=== PATIENT | male | born 1950 | race Caucasian/White ===

== ENCOUNTER → 2017-08-11 | Outpatient (CLI) | payer MEDICARE, BC ==
[~2017-08-11] MED LIST: ASPIR-LOW81 MG PO; ASPIRIN 81M81 MG/TA2 PO; BACTRIM DS 8001 TAB PO; CARTIA XT240 MG PO; CEPHALEXIN500 M1 PO; HCTZ 25MG25 MG PO; KLOR-CON 1010 MEQ PO; LODINE400 MG PO; MVI PO; OSTEO-BI-FLEX 21 TAB PO; TOPROL XL25 MG PO; TYLENOL 500MG500 MG PO
== END ==
LOC: COL.RAD 12:18
DX: G31.1 Senile degeneration of brain, not elsewhere classified (principal); F01.50 Vascular dementia, unspecified severity, without behavioral disturbance, psychotic disturbance, mood disturbance, and anxiety
CPT/HCPCS: A9585

== ENCOUNTER 2020-01-06 12:26 | Inpatient (IN) | payer MEDICARE, BC ==
[~2020-01-06] VITALS: Ht 198.1 cm; Wt 120.1 kg
[2020-01-06] VITALS (75 sets, daily range): O2SAT 56–100
--- NOTE | 2020-01-06 06:31 | NUR ---
Sporadic twitching noted in the bilateral upper and lower extremities with initial admission assessment at 2100. Asked daughter, Didi, while at the bedside if this was normal for the patient. She said it was not, and that it had began within the last few days. Twitching has increased in frequency and intensity throughout shift. Both hospitalist and MORRIS have been notified.
[2020-01-06 14:12] LABS: MEAN CELL VOLUME 102 fl (80.0-100.0); MEAN CORPUSCULAR HGB CONC 35 g/dl (33.0-37.0); MEAN PLATELET VOLUME 9.9 fl (7.4-10.4); PLATELET COUNT 194 K/mm3 (130-400); RED BLOOD COUNT 2.52 M/mm3 (4.20-5.60); REDCELL DISTRIBUTION WIDTH-CV 14.1 % (11.5-14.5)
[2020-01-06 14:14] LABS: HEMOGLOBIN 8.9 g/dl (13.5-18.0); MEAN CORPUSCULAR HEMOGLOBIN 35 pg (27.0-31.0)
[2020-01-06 14:15] LABS: HEMATOCRIT 25.7 % (42.0-52.0)
[2020-01-06 14:24] LABS: ALBUMIN 3.7 gm/dL (3.5-5.0); BILIRUBIN,TOTAL 1.2 mg/dL (0.0-1.0); CALCIUM 9.5 mg/dL (8.4-10.2); TOTAL PROTEIN 9.2 gm/dL (6.4-8.2)
[2020-01-06 14:28] LABS: POTASSIUM 6.3 mmol/L (3.4-5.0)
[2020-01-06 14:30] LABS: CREATININE, serum 26.13 (0.66-1.25)
[2020-01-06 14:48] LABS: TROPONIN-I 0.375 ng/mL (0.000-0.035)
[2020-01-06 15:16] LABS: BAND 2 % (0-10); EOSINOPHIL 2 % (0-4); LYMPHOCYTE 11 % (20.0-51.0); METAMYELOCYTE 1 % (0-0); MYELOCYTE 1 % (0-0); NEUTROPHILS 80 % (42.0-75.2); PLATELET ESTIMATE NORMAL (NORMAL)
[2020-01-06 16:33] LABS: C-REACTIVE PROTEIN 5.1 mg/dL (0.0-0.9); MAGNESIUM 1.7 mg/dL (1.6-2.3)
[2020-01-06 16:37] LABS: PHOSPHOROUS 11.9 mg/dL (2.5-4.5)
[2020-01-06 17:09] LABS: COLLECTION METHOD CLEAN CATCH
[2020-01-06 17:24] LABS: MUCOUS Present /lpf; PH 6 (5-8); SQUAMOUS EPITHELIAL None Seen /hpf; URINE APPEARANCE Cloudy; URINE BACTERIA Rare /hpf; URINE BILIRUBIN Negative (NEGATIVE); URINE BLOOD 2+ (NEGATIVE); URINE COLOR Yellow; URINE GLUCOSE Negative (NEGATIVE); URINE KETONE Negative (NEGATIVE); URINE LEUKOCYTE ESTERASE Negative (NEGATIVE); URINE NITRATE Negative (NEGATIVE); URINE PROTEIN(semi-quant) 2+ (NEGATIVE); URINE RBC >50 /hpf; URINE UROBILINOGEN Negative (NEGATIVE)
--- NOTE | 2020-01-06 19:37 | NUR ---
Received report from [facility] ED nurse.
--- NOTE | 2020-01-06 20:30 | NUR ---
Patient arrives to ICU room 1 via ED stretcher accompanied by ED nurse and daughter, Didi. Patient able to scoot into ICU bed with minimal assistance. Patient is alert to self, birthday, and location. He is confused regarding the time, current president, and situation. Initial BP is 196/99, other vitals within normal limits. Patient denies any pain or discomfort. He arrives with NS hanging to gravity tubing to a peripheral IV in the LAC; he has a coates catheter with 10mL of orange/pinkish urine in urometer. Patient is on room air. notified of patient's arrival. Will continue to monitor.
--- NOTE | 2020-01-06 21:46 | NUR ---
Dr. Gallagher notified of consult and patient condition. Received orders to add the following to prior ED labs: SPEP, serum free light chain, renal panel, uric acid, and UPCR. Received orders for the following medications: sodium bicarb drip in D5W at 50mL/hr, sodium bicarb 650mg PO QID, to start now; PRN hydralazine 25mg PO q 4 hours for a systolic greater than 155; lasix 40mg IV now. To obtain blood cultures if a temperature greater than 100F obtained. Oncology to be consulted in the AM. All orders repeated and clarified with Dr. Gallagher. He states he will see the patient tomorrow.
[2020-01-06 22:43] LABS: ALBUMIN 3.7 gm/dL (3.5-5.0); CALCIUM 9.5 mg/dL (8.4-10.2); URIC ACID 15.3 mg/dL (3.5-8.5)
[2020-01-06 22:49] LABS: CREATININE, serum 26.32 (0.66-1.25)
[2020-01-06 22:53] LABS: POTASSIUM 6.4 mmol/L (3.4-5.0)
[2020-01-06 23:10] LABS: URINE PROTEIN:CREAT RATIO 6.22 (0.00-0.14)
[2020-01-07] VITALS (471 sets, daily range): BP systolic 143–196; BP diastolic 84–103; PULSE 72–85; TEMP 97.2–98.6; O2SAT 57–100
--- NOTE | 2020-01-07 04:17 | NUR ---
Notified of patient's continued elevated SBPs ranging 160-190s, with DBPs greater than 100 throughout majority of shift. This has been despite administration of hydralazine, metoprolol, and morphine. She suggested I consult with MORRIS. Dr. Jacome notified of pressures as well as patient's worsening body twitching. Received orders to initiate cardene drip at 2.5mg/hr. Relayed orders to , who agreed with this plan of care. PRN ativan administered to help ease tremors. Patient is currently resting easier in bed. Twitching has eased significantly. Will continue to monitor.
[2020-01-07 05:47] LABS: MEAN CELL VOLUME 103 fl (80.0-100.0); MEAN CORPUSCULAR HGB CONC 35 g/dl (33.0-37.0); MEAN PLATELET VOLUME 10.1 fl (7.4-10.4); PLATELET COUNT 184 K/mm3 (130-400); RED BLOOD COUNT 2.22 M/mm3 (4.20-5.60); REDCELL DISTRIBUTION WIDTH-CV 14.4 % (11.5-14.5)
[2020-01-07 05:50] LABS: HEMATOCRIT 22.9 % (42.0-52.0); HEMOGLOBIN 7.9 g/dl (13.5-18.0); MEAN CORPUSCULAR HEMOGLOBIN 36 pg (27.0-31.0)
[2020-01-07 06:06] LABS: CREATININE, serum 26.85 (0.66-1.25)
[2020-01-07 06:25] LABS: ALBUMIN 3.4 gm/dL (3.5-5.0); BILIRUBIN,TOTAL 1.2 mg/dL (0.0-1.0); CALCIUM 9.2 mg/dL (8.4-10.2); TOTAL PROTEIN 8.6 gm/dL (6.4-8.2)
[2020-01-07 06:28] LABS: POTASSIUM 5.8 mmol/L (3.4-5.0)
[2020-01-07 06:29] LABS: BAND 4 % (0-10); LYMPHOCYTE 17 % (20.0-51.0); NEUTROPHILS 73 % (42.0-75.2); PLATELET ESTIMATE NORMAL (NORMAL)
--- NOTE | 2020-01-07 07:30 | NUR ---
PATIENT CARE TAKEN OVER AFTER REPORT RECEIVED FROM MATHEUS MORENO. PATIENT IS SLEEPING HEAVILY WITH SNORING RESPIRATIONS. HE WAKES BRIEFLY WHEN STIMULATED, BUT IS UNABLE TO STAY AWAKE. VS WNL. CARDENE GTT AND SODIUM BICARB GTT INFUSING. WILL CONTINUE TO MONITOR.
--- NOTE | 2020-01-07 10:00 | NUR ---
SON, MIRIAM, HAS BEEN HERE FOR A LITTLE WHILE. HE IS UPDATED ON THE PATIENT'S SITUATION. PHYSICIANS ON THE UNIT ROUNDING AT THIS TIME. MUCH DISCUSSION REGARDING CODE STATUS, AGGRESSIVENESS OF TREATMENT AND OVERALL PLAN FOR THIS PATIENT.
[2020-01-07 10:09] LABS: ARTERIAL BLD GAS O2 SATURATION 92.4 % (92-100); ARTERIAL BLD GAS TCO2 CT 15.2; ARTERIAL BLOOD GAS BASE EXCESS -11.8 (-2-2); ARTERIAL BLOOD GAS HCO3 14.2 meq/L (22-26); ARTERIAL BLOOD GAS PCO2 32.6 mmHg (35-45); ARTERIAL BLOOD GAS PO2 79.7 mmHg (80-100); ARTERIAL BLOOD GAS pH 7.26 (7.35-7.45)
--- NOTE | 2020-01-07 11:00 | NUR ---
PATIENT'S FAMILY, INCLUDING DPOAs, DECIDE TO MAKE THE PATIENT A DNR. THIS WILL BE VERIFIED WITH DR. GOMEZ.
[2020-01-07 11:49] LABS: INR 1.5 (0.8-3.0); PROTHROMBIN TIME 16.7 SECONDS (9.7-12.8)
[2020-01-07 11:51] LABS: PARTIAL THROMBOPLASTIN TIME 25.7 SECONDS (26.0-37.0)
--- NOTE | 2020-01-07 12:30 | NUR ---
DR. TONG HERE TO PLACE FEMORAL DIALYSIS CATHETER.
--- NOTE | 2020-01-07 13:15 | NUR ---
C 40A Crew Chief prayed while family was in room. C 40A Crew Chief visited with family member.
--- NOTE | 2020-01-07 16:30 | NUR ---
MATHEUS Bennett, here to adminster Hemodialysis for this patient. Son, Janes, in room and updated on the plan for HD at this time.
--- NOTE | 2020-01-07 17:10 | NUR ---
Cinthia Lainez APRN here to check on patient during dialysis. She notifies me that patient will be made "floor status" following dialysis so that he may transfer up to third floor so he can received HD tomorrow upstairs. I ask her if Dr. Gallagher has spoken with the hospitalist about this given how ill the patient is. She says that they have discussed it and are in agreement that the patient can transfer up. I state to her that the patient is on a Cardene gtt to help keep SBP controlled below 150. She states that will need to be weaned off. Dr. Arteaga contacted regarding this new information regarding transfer to medical floor. He confirms that orders should be in place for the transfer. I notify him of cardene gtt and that i will work on weaning it off. He states that PRN antihypertensives will be ordered to help with HTN.
--- NOTE | 2020-01-07 18:15 | NUR ---
Dr. Arteaga on unit at this time. I discuss with him the transfer orders received for this patient and my concerns for the need for closer monitoring given how ill the patient is. He states that Dr. Gallagher discussed the transfer with him earlier and he is agreeable to allowing the patient to transfer to the third floor. Patient continues to received HD at this time. Will pass on to overnight stocker RN that patient should transfer up to third floor after HD is completed.
--- NOTE | 2020-01-07 19:00 | NUR ---
Bedside report given to MATHEUS Siddiqui. Plan for transfer to floor communicated at this time.
--- NOTE | 2020-01-07 23:39 | NUR ---
Notified Lissett of patient's increasing BPs. Patient exhibits limited orientation; unable to tolerate PO at this time. PO hydralazine held. Received orders for hydralazine 10mg IV q 4 hours. Discussed PRN ativan dosages, which were decreased to 0.5mg q 6 hours PRN. Will continue to monitor.
[2020-01-08] VITALS (445 sets, daily range): BP systolic 142–189; BP diastolic 77–99; PULSE 66–95; TEMP 96.9–98.9; O2SAT 70–100
--- NOTE | 2020-01-08 01:50 | NUR ---
MAYRA Galeana, notified of patient's persistent SBPs 170-180s despite IV hydralazine administration. Patient also experienced brief episode of tachycardia up to 120s, with increased ectopy in heart rhythm at approximately 0100. Patient is alert, although not oriented. He denies any pain or discomfort when asked but appears restless. PRN morphine administered for comfort measures. Due to uncontrolled BPs and heart rhythm irregularities, this nurse advocated that the patient not be transferred to medical prior to shift change. Will continue to monitor.
[2020-01-08 05:36] LABS: BASO % 0.4 % (0.0-2.0); EOS # 0.1 (0.0-0.7); EOS % 0.6 % (0-4.0); GRAN # 7.7 (1.4-6.5); GRAN % 73.3 % (42.2-75.2); LYMPH # 1.4 (1.2-3.4); LYMPH % 13.4 % (20.0-51.0); MEAN CELL VOLUME 104 fl (80.0-100.0); MEAN CORPUSCULAR HGB CONC 35 g/dl (33.0-37.0); MEAN PLATELET VOLUME 9.9 fl (7.4-10.4); MONO # 1.2 (0.1-0.6); MONO % 11.1 % (1.7-9.3); PLATELET COUNT 186 K/mm3 (130-400); RED BLOOD COUNT 2.35 M/mm3 (4.20-5.60); REDCELL DISTRIBUTION WIDTH-CV 14.6 % (11.5-14.5)
[2020-01-08 05:37] LABS: HEMATOCRIT 24.5 % (42.0-52.0); HEMOGLOBIN 8.5 g/dl (13.5-18.0); MEAN CORPUSCULAR HEMOGLOBIN 36 pg (27.0-31.0)
[2020-01-08 05:48] LABS: ALBUMIN 3.6 gm/dL (3.5-5.0); CALCIUM 9.2 mg/dL (8.4-10.2); POTASSIUM 5.2 mmol/L (3.4-5.0)
[2020-01-08 05:54] LABS: CREATININE, serum 23.2 (0.66-1.25)
[2020-01-08 05:56] LABS: PHOSPHOROUS 12.8 mg/dL (2.5-4.5)
[2020-01-08 13:00] LABS: HEPATITIS B SURFACE ANTIBODY <2.0 (()); HEPATITIS B SURFACE ANTIGEN Negative (Negative); HEPATITIS C VIRUS ANTIBODY Negative (Negative)
--- NOTE | 2020-01-08 21:00 | NUR ---
Pt transfered from ICU to the surgical unit. Pt was drowsy, closed eyes and on stress when arriving on the floor. BP was on higher side, PRN hydralazine provided as per MAY. Mouth was very dry, mouth care provided. Pt is settled on his bed, call light on reach, bed alarm is on. No further needs at this time.
[2020-01-09 00:23] VITALS: BP 171/81; PULSE 81; TEMP 98.1
--- NOTE | 2020-01-09 02:09 | NUR ---
REMOVED BIPAP DUE TO BLOOD IN MASK AND IN/AROUND MOUTH. CONTACTED CHUCKY HOU, HOSPITALIST PROVIDER. GATHERING SUPPLIES FOR IN ROOM SUCTION, NO REGULATOR HOUND AT THIS POINT.
--- NOTE | 2020-01-09 02:19 | NUR ---
Oral suction now at bedside. Leticia assessed pt and is calling Dr. Jha. RN with pt at this time performing oral care.
--- NOTE | 2020-01-09 03:17 | NUR ---
Pt had hi-cup for a while, informed respiratory. Noticed bleeding on his mouth from unknown source. Informed Leticia, the hospitalist provider, who called Dr. Jha. Did mouth suction and oral care. Put back to oxymask. PRN pain meds provided as pt looks on distress and uncomfortable. Will keep monitoring him.
[2020-01-09 04:00] VITALS: BP 144/93; PULSE 89; TEMP 98.8
--- NOTE | 2020-01-09 06:25 | NUR ---
Pt slept on and off through out the night. Will keep monitoring, no further needs.
[2020-01-09 07:48] VITALS: BP 190/83; PULSE 80; TEMP 98.6
[2020-01-09 08:00] LABS: BASO % 0.2 % (0.0-2.0); EOS % 0.4 % (0-4.0); GRAN # 7.8 (1.4-6.5); GRAN % 75.5 % (42.2-75.2); LYMPH # 1.2 (1.2-3.4); LYMPH % 11.8 % (20.0-51.0); MEAN CELL VOLUME 101 fl (80.0-100.0); MEAN CORPUSCULAR HGB CONC 35 g/dl (33.0-37.0); MONO # 1.1 (0.1-0.6); MONO % 10.8 % (1.7-9.3); PLATELET COUNT 181 K/mm3 (130-400); RED BLOOD COUNT 2.21 M/mm3 (4.20-5.60); REDCELL DISTRIBUTION WIDTH-CV 14.4 % (11.5-14.5)
--- NOTE | 2020-01-09 08:00 | NUR ---
PATIENT IS ALERT AT TIMES. HX OF DEMENTIA. PATIENT DOESN'T REALLY COMMUNICATE WITH STAFF. NOTED ELEVATED B/P OF 190/83. GAVE PRN HYDRALAZINE. TELE INPLACE. MITTS TO BUE TO PREVENT PATIENT FROM PULLING ON LINES. PATIENT IS NPO. RISK FOR ASPIRATION. HOB ELEVATED. BI-PAP AT HS. PATIENT CURRENTLY ON O2 @ 4L PER OXY MASK. PATIENT IS A MOUTH BREATHER AND ORAL CAVITY IS VERY DRY. NOTED SOME DRY BLOOD IN MOUTH. ELECTRONIC SCIENCE TEACHER REPORTED HEMOPTYSIS, NONE TODAY. PALLIATIVE CARE CONSULT, POSSIBLE COMFORT CARE. SCAN SHOWED LUNG MASS AND BONE LESSIONS. HEAD TO TOE ASSESSMENT COMPLETE. JACOBO TO DD. BED ALARM ON.
[2020-01-09 08:01] LABS: HEMATOCRIT 22.4 % (42.0-52.0); HEMOGLOBIN 7.9 g/dl (13.5-18.0); MEAN CORPUSCULAR HEMOGLOBIN 36 pg (27.0-31.0)
[2020-01-09 08:15] LABS: CREATININE, serum 19.37 (0.66-1.25)
[2020-01-09 08:44] LABS: CALCIUM 9.5 mg/dL (8.4-10.2)
--- NOTE | 2020-01-09 09:00 | NUR ---
PATIENT GOING TO DIALYSIS. SON AT BEDSIDE.
--- NOTE | 2020-01-09 09:30 | NUR ---
ANDIE, PALLIATIVE CARE NURSE AT BEDSIDE TALKING WITH SON WHILE PATIENT IS IN DIALYSIS.
--- NOTE | 2020-01-09 11:13 | NUR ---
First visit from the development intern. No needs right now.
--- NOTE | 2020-01-09 11:21 | NUR ---
I met with son Renetta in room while patient was in dialysis. Renetta reports that his dad is not thinking clearly and that the three living children have been in close contact as they try to deal with the very serious condition that their father is in. They were not aware of his issues prior to his admission with the exception of dementia per Renetta. Pt is a DNR at this point but theya re waiting to hear from the specialists (Russ and Becky) before making further decisions. His parents David and Corey have been at [facility] for about 2 years. Corey is not well. her daughter Didi has been able to spend short periods of time with her and Renetta is staying with his father. We reviewed different goals of care, aggressive, supportive, and comfort focused care but renetta is not ready for any further decisions until they talk with the experts. Support and contact information was provided.
--- NOTE | 2020-01-09 11:23 | NUR ---
The patient was in a procedure. SHEREEN met with the patient's son, Janes (ph#[phone]), to discuss discharge plan. The patient resides at [facility] in Independent Living with his , Kell. Kell is ill. Janes's sister, Didi, has been staying and checking in on Kell while the patient is here. Janes reports that the patient was independent with ADLs before being admitted and does not have any DME. He was not receiving any home health services. The patient's PCP is Dr. Jonnathan [facility] and he receives his medications at [facility]. The patient does not have a DPOA-HC in EMR. Janes reports that the provided a copy of the patient's DPOA-HC to the ICU staff. The patient's chart is with the patient in his procedure. SW to check the patient's chart, when he returns. Janes states that the patient's DPOA-HC is his mother, but she is ill. The alternates are the patient's three children: Didi Marrero (ph#[phone]), and Williams (ph#[phone]). The clinical team suspects the patient likely has multiple myeloma with extensive bony metastasis. A palliative care consult was ordered. Janes and his siblings would like to hear from and talk to Dr. Pena and Dr. Solano before making any further decisions on plan of care. SHEREEN contacted and faxed updates to Babs at [facility]. SW to continue to follow.
[2020-01-09 12:47] VITALS: BP 159/79; PULSE 92; TEMP 98.6
--- NOTE | 2020-01-09 15:30 | NUR ---
REPORTED OFF TO MATHEUS SALAZAR.
[2020-01-09 15:43] VITALS: BP 183/65; PULSE 95; TEMP 98
--- NOTE | 2020-01-09 15:52 | NUR ---
Spoke with renetta this afternoon. I believe that Dr Pena is hoping to be here after office hours to talk with son. At this point, Renetta denies any questions for me and we will plan to talk again in the morning.
--- NOTE | 2020-01-09 18:30 | NUR ---
Took over care for patient at 1530. His son is at bedside. Patient is confused and is not able to respond to questions. He keeps trying to get his mitts off. Without the mitts he will try to pull at his tubes and oxygen. Dr Pena seen patient and spoke with the son. Dr Gallagher also spoke with him. No other changes at this time. Call light within reach. Bed alarm on.
[2020-01-09 19:58] VITALS: BP 155/90; PULSE 79; TEMP 98.7
[2020-01-10 00:10] VITALS: BP 178/73; PULSE 87; TEMP 99.1
--- NOTE | 2020-01-10 01:08 | NUR ---
Pt currently lying in bed. Oral care has been provided. Pt has done a little talking tonight. Pt still has a very small amount of red tinged urine out. Pt has his call liht within reach.
[2020-01-10 04:15] VITALS: BP 178/86; PULSE 72; TEMP 98.8
--- NOTE | 2020-01-10 07:03 | NUR ---
Pt has rested well during the night. Pt has been repositioned often during the night. Oral care was provided frequently. Pt did have only 25cc of urine out during the shift. Pt has his call light within reach.
[2020-01-10 07:18] VITALS: BP 163/90; PULSE 75; TEMP 98.6
[2020-01-10 07:22] LABS: MEAN CELL VOLUME 104 fl (80.0-100.0); MEAN CORPUSCULAR HGB CONC 34 g/dl (33.0-37.0); PLATELET COUNT 158 K/mm3 (130-400); RED BLOOD COUNT 2.19 M/mm3 (4.20-5.60); REDCELL DISTRIBUTION WIDTH-CV 14.3 % (11.5-14.5)
[2020-01-10 07:25] LABS: HEMATOCRIT 22.7 % (42.0-52.0); HEMOGLOBIN 7.8 g/dl (13.5-18.0); MEAN CORPUSCULAR HEMOGLOBIN 36 pg (27.0-31.0)
[2020-01-10 07:39] LABS: ALBUMIN 3.2 gm/dL (3.5-5.0); BILIRUBIN,TOTAL 1.2 mg/dL (0.0-1.0); CALCIUM 9.6 mg/dL (8.4-10.2); POTASSIUM 4.5 mmol/L (3.4-5.0); TOTAL PROTEIN 8.5 gm/dL (6.4-8.2)
[2020-01-10 07:45] LABS: CREATININE, serum 14.67 (0.66-1.25)
--- NOTE | 2020-01-10 08:00 | NUR ---
Shift assessment completed. Pt remains NPO. Pt has 4L O2 delivery via oxygen mask. Campbell catheter intact with small amount of hematuria in bag. Pt able to respond to name, but unable to answer questions. Crackles the middle right and uppers lobes of lungs, diminshed lung sounds in bases. Eccymosis at INT and dialysis catheter sites. Pitting edema found LLE.
--- NOTE | 2020-01-10 08:15 | NUR ---
Tranferred via bed to dialysis in RM 321
[2020-01-10 08:40] LABS: EOSINOPHIL 1 % (0-4); LYMPHOCYTE 17 % (20.0-51.0); NEUTROPHILS 77 % (42.0-75.2); PLATELET ESTIMATE NORMAL (NORMAL)
[2020-01-10 09:11] LABS: KAPPA FREE LIGHT CHAIN-SERUM 6507.06 mg/L (()); LAMDA FREE LIGHT CHAIN SERUM 15.71 mg/L (())
--- NOTE | 2020-01-10 11:31 | NUR ---
I talked with son in his father's room about events of last day. he was able to talk with Dr Pena last night and that was helpful in providing information. Treatment options are limited and life expectancy would be short even with supportive care unless the dialysis is able to make pt more awake and alert. Daughter is talking with Mrs. Bajwa this morning. Important factors in this situation are that (and hopefully daughter) will be allowed to be with David and that he would not be allowed to suffer without clear benefit to his situation. They are looking at doing dialysis today and tomorrow to see if his delirium clears and then will be making decisions, if not done before. Support provided. This was also discussed with Dr Gallagher and MAYRA Cash along with Reshma Kendall, social worker health services.
--- NOTE | 2020-01-10 12:33 | NUR ---
PT RETURNED FROM DIALYSIS AT THIS TIME. PT'S SON AT BEDSIDE. DR FRANKLIN MET EARLIER IN DAY WITH SON. REPOSTIONED FOR COMFORT. AGREE WITH STUDENTS ASSESSMENTS THIS AM.
--- NOTE | 2020-01-10 12:38 | NUR ---
DISCUSSED FLU VACCINE WITH SON AND SON DECLINED. WILL NOT GIVE FLU VACCINE AT THIS TIME.
--- NOTE | 2020-01-10 12:49 | NUR ---
SHEREEN staffed with Palliative Care Nurse, Kaylin. The patient is to have dialysis today. The patient's daughter plans to talk to the patient's this morning about the patient's prognosis and comfort care. The patient's family would like to see how the patient does today after dialysis before making a decision on plan of care. SHEREEN contacted and faxed updates to Babs at [facility]. SHEREEN to continue to follow.
--- NOTE | 2020-01-10 14:35 | NUR ---
Spoke with son, Janes about how conversation with Corey went and what he was thinking about his Dad's progress today. David (Dad) opened his eyes during our visit and responded to his son's greeting and responded to his questions about "how are you doing" with "fine"--then closed eyes and appeared to go back to sleep. Comfort care was further discussed with son Janes and also with Herb @ [facility] who is following this case. Potential for return to [facility] was discussed with request for best scenerio to allow David and Corey to be together at end of life. Family is not feeling that they can provide care in the home but would be willing to use [facility] staff for this support which may be an option per Herb. We will see how this discussion goes among family and will follow up with them tomorrow.
[2020-01-10 15:40] VITALS: BP 169/92; PULSE 72; TEMP 99.6
--- NOTE | 2020-01-10 17:12 | NUR ---
NOTIFIED IRAJ NUNEZ AND MAURICIO VOICE COACH THAT PT'S SON SAID THAT THEY WOULD LIKE COMFORT CARE TOMMORROW AT [facility].
[2020-01-10 19:58] VITALS: BP 151/79; PULSE 68; TEMP 98.9
--- NOTE | 2020-01-10 20:19 | NUR ---
Resting in bed. Assessment complete. Lungs clear. Heart sounds normal. Bowels active x4. Pulses present throughout. No edema noted. INT left forearm flushed without complications. Dialysis cath right groin CDI. Denies pain at this time. Repositioned. Denies needs. Call light in reach. Bed alarm in place.
--- NOTE | 2020-01-10 22:15 | NUR ---
Resting in bed. Call light in reach.
[2020-01-10 23:53] VITALS: BP 174/82; PULSE 82; TEMP 98.8
--- NOTE | 2020-01-11 00:02 | NUR ---
Repositioned. Denies needs. Call light in reach.
[2020-01-11 00:47] VITALS: BP 183/84
--- NOTE | 2020-01-11 00:50 | NUR ---
BP recheck 183/84. Given PRN hydralazine. Will monitor.
[2020-01-11 01:30] VITALS: BP 172/68
[2020-01-11 01:40] VITALS: BP 161/73
[2020-01-11 02:10] VITALS: BP 161/73
--- NOTE | 2020-01-11 02:45 | NUR ---
Patient given PRN ativan for aggitation. Will monitor.
--- NOTE | 2020-01-11 03:58 | NUR ---
Resting in bed. Repositioned. Call light in reach.
[2020-01-11 04:24] VITALS: BP 168/77; PULSE 77; TEMP 98.8
--- NOTE | 2020-01-11 05:25 | NUR ---
Patient had uneventful night. Repositioned Q2H. Denies needs this AM. Call light in reach.
[2020-01-11 06:47] LABS: MEAN CELL VOLUME 104 fl (80.0-100.0); MEAN CORPUSCULAR HGB CONC 34 g/dl (33.0-37.0); MEAN PLATELET VOLUME 10.1 fl (7.4-10.4); PLATELET COUNT 159 K/mm3 (130-400); RED BLOOD COUNT 2.22 M/mm3 (4.20-5.60); REDCELL DISTRIBUTION WIDTH-CV 14.1 % (11.5-14.5)
--- NOTE | 2020-01-11 06:51 | NUR ---
Report given to MATHEUS Masters
[2020-01-11 06:52] LABS: HEMOGLOBIN 7.9 g/dl (13.5-18.0); MEAN CORPUSCULAR HEMOGLOBIN 36 pg (27.0-31.0)
--- NOTE | 2020-01-11 07:00 | NUR ---
PATIENT IS MORE ALERT TODAY AND IS TALKING WITH STAFF. NOTED CONFUSIONG. PATIENT HAS HX OF DEMENTIA. PATIENT IS ABLE TO ANSWER BASIC QUESTIONS. NOTED VERY DRY ORAL MUCOSA. PATIENT IS A MOUTH BREATHER AND HAS AN OXY MASK AT 4L. BI-PAP AT HS. NPO. ORAL CARES PROVIDED. HEAD TO TOE ASSESSMENT COMPLETE. PATIENT IS WEAK AND PALE. PATIENT DOES MOVE EXTREMITIES AND AT TIMES WILL REACH FOR THINGS THAT ARE NOT THERE. PT/OT CONSULTED. JACOBO TO DD. LEFT FORARM IV TO INT. TELE INPLACE. MITS TO BUE TO PREVENT PULLING AT MONITOR CORDS. BED ALARM ON.
[2020-01-11 07:01] LABS: CREATININE, serum 9.48 (0.66-1.25); POTASSIUM 4.3 mmol/L (3.4-5.0)
--- NOTE | 2020-01-11 07:45 | NUR ---
SON NOW AT BEDSIDE. ALREADY ROUNDED BUT WILL CALL SON TODAY.
--- NOTE | 2020-01-11 07:50 | NUR ---
PATIENT GOING TO DIALYSIS VIA BED.
[2020-01-11 09:00] LABS: BAND 1 % (0-10); EOSINOPHIL 4 % (0-4); LYMPHOCYTE 19 % (20.0-51.0); METAMYELOCYTE 2 % (0-0); NEUTROPHILS 66 % (42.0-75.2); PLATELET ESTIMATE NORMAL (NORMAL)
--- NOTE | 2020-01-11 09:44 | NUR ---
I met with son Janes this morning. He reports that [facility] is setting up a cottage for their Dad, a hospice nurse will be the 24 hour caregiver, and family will be able to be with David and their mother with many fewer restrictions. EMS is to pick pt up at 1345 and transport to [facility] per nursing staff and son Janes was advised of this time. Pt himself is in dialysis. Per son, he is interacting slightly more today. Support provided.
[2020-01-11] MEDS ORDERED: TRANSDERM-0.5 MG/21 TD (10:08)
[2020-01-11] MEDS ORDERED: IPRATROPIUM BROM3 M1 IH (10:09)
[2020-01-11] MEDS ORDERED: LORAINT SL (10:09)
[2020-01-11] MEDS ORDERED: ROXANOL 20MG20 MG/ML PO (10:09)
[2020-01-11] MEDS ORDERED: ZOFRAN ODT4 MG PO (10:09)
--- NOTE | 2020-01-11 10:30 | NUR ---
SHEREEN met with the patient's son, Janes, to follow up on plan of care. Janes states that him and his family have decided to pursue with comfort measures for the patient. Janes states that they have been working with [facility] and [facility] has arranged a private cottage for the patient and his family. Janes states that him and his family would like for the patient to return to [facility] today after dialysis on comfort measures. SHEREEN presented and read the IM form outloud to Janes. Janes verbalized undersanding and gave SW approval to sign the form on his behalf. SW provided him with a copy. SHEREEN updated the clinical team. SHEREEN then followed up with Babs at [facility]. Babs confirms that they have a cottage for the patient and his family and that they have set up 24/ care and hospice through [facility]. [facility]. The patient is to discharge today, 01/10, to [facility] for hospice through [facility]. Transportation was arranged at 1345, via [facility]. SHEREEN notified the patient's son, RN, and Babs at [facility] of transport time. They were all agreeable to the time. SHEREEN also presented and read the EMS Transfer Consent Forms to the patient's son, Janes. Janes verbalized understanding and gave SW approval to sign the form on his behalf. No additional needs at this time.
[2020-01-11 12:01] VITALS: BP 181/99; PULSE 79; TEMP 98.7
--- NOTE | 2020-01-11 12:05 | NUR ---
PATIENT BACK IN ROOM FROM DIALYSIS. DIALYSIS NURSE REPORTED B/P IN THE 180'S SYSTOLIC. GAVE PRN HYDRALAZINE PER ORDERS.
--- NOTE | 2020-01-11 13:27 | NUR ---
PULLED RIGHT FEMORAL DIALYSIS CATH PER ORDERS. REMOVED SUTURES X2. APPLIED MANUAL PRESSURE FOR OVER 15 MINUTES. FOAM CLOTTING SPONGE & 4X4 GAUZE APPLIED. ICU CONFIMED CLOTTING BEFORE DISCHARGING WITH EMS TO [facility]. INFO PACKET GIVEN TO EMS. [facility] CALLED FOR REPORT/UPDATE WHILE NURSE WAS HOLDING FEMORAL PRESSURE. BIOMEDICAL ENGINEERING TECHNICIAN HELD PHONE SO REPORT/UPDATE GIVEN. SON AT BEDSIDE. PERSONAL BELONGINGS ARE PACKED AND SENT WITH SON. TELD DC'D. LEFT FORARM IV DC'D. PATIENT DISCHARGED.
== END 2020-01-11 14:05 | DRG 840 ==
LOC: COL.ER 12:26 → ICU 17:28 → SURG 01-08 19:28
PROVIDERS: Emergency Medicine; Internal Medicine Nephrology; Nurse Practitioner; Nurse Practitioner Primary Care; Physician Assistant; ADMIT Internal Medicine
PROC: 02H633Z Insertion of Infusion Device into Right Atrium, Percutaneous Approach (ICD-10-PCS; principal; 2020-01-07)
PROC: 5A1D70Z Performance of Urinary Filtration, Intermittent, Less than 6 Hours Per Day (ICD-10-PCS; 2020-01-07)
DX: C90.00 Multiple myeloma not having achieved remission (principal); N17.0 Acute kidney failure with tubular necrosis; G93.41 Metabolic encephalopathy; J96.01 Acute respiratory failure with hypoxia; E87.2 Acidosis; F05 Delirium due to known physiological condition; C79.51 Secondary malignant neoplasm of bone; M84.58XA Pathological fracture in neoplastic disease, other specified site, initial encounter for fracture; Z66 Do not resuscitate; Z51.5 Encounter for palliative care; I10 Essential (primary) hypertension; M19.90 Unspecified osteoarthritis, unspecified site; F03.90 Unspecified dementia, unspecified severity, without behavioral disturbance, psychotic disturbance, mood disturbance, and anxiety; E87.5 Hyperkalemia; D63.8 Anemia in other chronic diseases classified elsewhere; I16.0 Hypertensive urgency
CPT/HCPCS: 99223-AI; 99231-AI; 99232-AI; 99233-AI; 99239; A9284; J0360; J0610; J1630; J1644; J1815; J1940; J2060; J2270; J7030; J7050; J7070; Q5106